=== PATIENT | male | born 1945 | race Caucasian/White ===

== ENCOUNTER 2022-05-14 04:10 | Day surgery (SDC) | payer OTHER ==
[2022-05-10 11:27] VITALS: BMI 27.1
[2022-05-14] MEDS ORDERED: ACETAMINOPHEN 1000 MG/100 ML BAG IVPB ONE (13:41)
[2022-05-14] MEDS ORDERED: IBUPROFEN 800 MG/8 ML IJ IVPB SCH (13:45)
[2022-05-14] MEDS ORDERED: DEXTROSE 5%-0.45% SALINE 1,000 ML IV SCH (13:45)
[2022-05-14] MEDS ORDERED: ceFAZolin SODIUM 1 GM VIAL ONE (13:46)
[2022-05-14] MEDS ORDERED: LIDOCAINE HCL/PF 2% SDV 5ML VIAL ONE (13:46)
[2022-05-14] MEDS ORDERED: PROPOFOL 20 ML ONE ×3 (13:46)
[2022-05-14] MEDS ORDERED: ceFAZolin SODIUM 1 GM VIAL IVPB ONE (13:55)
[2022-05-14 14:53] VITALS: RESP 18
[2022-05-14 15:28] VITALS: BP 116/75; PULSE 67; TEMP 97.3
== END 2022-05-14 15:35 | disposition home or self-care (01) ==
LOC: JASU-SURG 04:10
PROVIDERS: ATTEND Urology
PROC: 0TF7XZZ Fragmentation in Left Ureter, External Approach (ICD-10-PCS; principal; 2022-05-14 14:00)
DX: N20.1 Calculus of ureter (principal)

== ENCOUNTER 2022-08-30 04:12 | Day surgery (SDC) | payer OTHER ==
[2022-08-27 13:39] VITALS: BMI 26.6
[2022-08-30] MEDS ORDERED: ACETAMINOPHEN 1000 MG/100 ML BAG IVPB ONE (14:32)
[2022-08-30] MEDS ORDERED: PROPOFOL 20 ML ONE (14:32)
[2022-08-30] MEDS ORDERED: ceFAZolin SODIUM 1 GM VIAL IVPB ONE (14:45)
[2022-08-30] MEDS ORDERED: DEXTROSE 5%-0.45% SALINE 1,000 ML IV SCH (14:45)
[2022-08-30] MEDS ORDERED: IBUPROFEN 800 MG/8 ML IJ IVPB SCH (14:45)
[2022-08-30] MEDS ORDERED: ceFAZolin SODIUM 1 GM VIAL ONE (14:53)
[2022-08-30] MEDS ORDERED: ONDANSETRON 4 MG/2 ML VIAL ONE (14:58)
[2022-08-30] MEDS ORDERED: DEXAMETHASONE SOD PHOSPHATE 4 MG/1 ML VIAL ONE (14:58)
[2022-08-30] MEDS ORDERED: ACETAMINOPHEN INJECTION 100 ML IVPB ONE (15:32)
[2022-08-30 16:54] VITALS: RESP 18
[2022-08-30] MEDS ORDERED: oxyCODONE HCL 5 MG TABLET PO PRN ×2 (17:05)
[2022-08-30] MEDS ORDERED: ONDANSETRON 4 MG/2 ML VIAL IVPUSH PRN (17:05)
[2022-08-30] MEDS ORDERED: PROMETHAZINE HCL 25 MG/1 ML VIAL IVPUSH PRN (17:05)
[2022-08-30] MEDS ORDERED: LACTATED RINGERS SOLUTION 1,000 ML IV SCH (17:15)
[2022-08-30 18:32] VITALS: BP 122/71; PULSE 68; TEMP 98.1
== END 2022-08-30 18:30 | disposition home or self-care (01) ==
LOC: JASU-SURG 04:12
PROVIDERS: ATTEND Urology
PROC: 0TC78ZZ Extirpation of Matter from Left Ureter, Via Natural or Artificial Opening Endoscopic (ICD-10-PCS; principal; 2022-08-30 14:30)
PROC: 0T778DZ Dilation of Left Ureter with Intraluminal Device, Via Natural or Artificial Opening Endoscopic (ICD-10-PCS; 2022-08-30 14:30)
DX: N20.1 Calculus of ureter (principal)
CPT/HCPCS: 76000-TC-FY; 94760; C1769; C2617